=== PATIENT | male | born 1990 | race Caucasian/White ===

== ENCOUNTER 2017-06-27 22:59 | Emergency (ER) | payer SELFPAY ==
[~2017-06-27] VITALS: Ht 182.9 cm; Wt 84.5 kg
[~2017-06-27 22:59] MED LIST: CLEOCIN HCL300 MG PO; ELIMITE TOP; NO HOME MEDICATIONS
[2017-06-27 23:20] VITALS: BP 136/93; PULSE 100; TEMP 98.7
[2017-06-27] MEDS ORDERED: ELIMITE TOP (23:30)
== END 2017-06-28 00:49 | disposition home or self-care (01) ==
LOC: COL.ER 22:59
DX: B86 Scabies (principal); F12.90 Cannabis use, unspecified, uncomplicated; F17.210 Nicotine dependence, cigarettes, uncomplicated

== ENCOUNTER 2017-07-01 01:06 | Emergency (ER) | payer SELFPAY ==
[~2017-07-01] VITALS: Ht 180.3 cm; Wt 72.7 kg
[2017-07-01 01:30] VITALS: BP 150/74; PULSE 90
== END 2017-07-01 03:18 | disposition home or self-care (01) ==
LOC: COL.ER 01:06
DX: B86 Scabies (principal); F17.210 Nicotine dependence, cigarettes, uncomplicated; F12.90 Cannabis use, unspecified, uncomplicated